=== PATIENT | female | born 1960 | race Caucasian/White ===

== ENCOUNTER → 2016-11-30 | Outpatient (CLI) | payer BC ==
[~2016-11-30] MED LIST: HYDR1TAB2 PO; LORA1TAB13 PO; PRLSR20 PO
[2016-11-30 13:25] LABS: THYROID STIMULATING HORMONE 1.33 uIu/ml (0.300-4.500)
== END | disposition home or self-care (01) ==
LOC: C.LABMFLN 08:21
PROVIDERS: ATTEND Family Medicine
DX: E03.9 Hypothyroidism, unspecified (principal)

== ENCOUNTER → 2016-12-21 | Outpatient (CLI) | payer BC ==
[2016-12-21 13:36] LABS: BASO % 0.5 %; BASO ABS # 0.03 K/uL (0-0.2); COMPLETE YES; EOS % 4.5 %; IG% 0.2 %; LYMPH % 35.4 %; LYMPH ABS # 1.98 K/uL (1.2-3.4); MEAN CELL VOLUME 91.1 fL (80-100); MEAN CORPUSCULAR HEMOGLOBIN 30.5 pg (25-34); MEAN CORPUSCULAR HGB CONC 33.5 g/dl (32-36); MEAN PLATELET VOLUME 10.4 fL (7.4-10.4); MONO % 6.6 %; NEUT % 52.8 %; PLATELET COUNT 232 K/uL (130-400); RED BLOOD COUNT 4.72 M/uL (4.2-5.4)
[2016-12-21 13:41] LABS: ALB/GLOB RATIO 0.9 (0.9-2); ALKALINE PHOSPHATASE 129 U/L (45-117); ALT/SGPT 75 U/L (12-78); AST/SGOT 34 U/L (15-37); BLOOD UREA NITROGEN 19 mg/dl (7-18); BUN/CREATININE RATIO 19.2 (10-20); CALCIUM 8.4 mg/dl (8.5-10.1); CARBON DIOXIDE 25 mmol/L (21-32); CHLORIDE 108 mmol/L (98-107); GLUCOSE 118 mg/dl (70-99); HDL CHOLESTEROL 90 mg/dl; POTASSIUM 4.1 mmol/L (3.5-5.1); SODIUM 143 mmol/L (136-145)
[2016-12-21 13:42] LABS: CHOLESTEROL 233 mg/dl (0-200); CHOLESTEROL/HDL RATIO 2.6; LDL CHOLESTEROL CALCULATED 126 mg/dl; TRIGLYCERIDES 85 mg/dl (0-150); VERY LOW DENSITY LIPOPROT CALC 17 mg/dl
[2016-12-21 14:05] LABS: ESTIMATED AVERAGE GLUCOSE 137 mg/dl; HA1C FLAG Normal (Normal)
[2016-12-21 14:13] LABS: RATIO 23.1 mcg/mg (0-30.0)
== END | disposition home or self-care (01) ==
LOC: C.LABMFLN 11:07
PROVIDERS: ATTEND Family Medicine
DX: I10 Essential (primary) hypertension (principal); E78.5 Hyperlipidemia, unspecified; E11.9 Type 2 diabetes mellitus without complications

== ENCOUNTER → 2017-09-29 | Outpatient (CLI) | payer BC ==
--- NOTE | 2017-09-29 16:01 | MAMMOGRAPHY REPORT ---
BILATERAL DIGITAL SCREENING MAMMOGRAM TOMOSYNTHESIS WITH CAD: 09/29/2017 CLINICAL HISTORY: Routine screening. Patient has no complaints. TECHNIQUE: Breast tomosynthesis in addition to standard 2D mammography was performed. Current study was also evaluated with a Computer Aided Detection (CAD) system. COMPARISON: Comparison is made to exams dated: 09/23/2016 mammogram, 09/04/2015 mammogram - [facility], 06/21/2013 mammogram, 04/07/2012 mammogram, 03/31/2011 mammogram, and 02/27/2010 mamm ogram. BREAST COMPOSITION: There are scattered areas of fibroglandular density in both breasts. FINDINGS: No suspicious masses, calcifications, or areas of architectural distortion are noted in ei ther breast. There has been no significant interval change compared to prior exams. There are stable intramammary lymph node in the right upper outer quadrant. IMPRESSION: ACR BI-RADS CATEGORY 2: BENIGN There is no mammographic evidence of malignancy. A 1 year screening mammogram is recommended. The pa tient will receive written notification of the results. Approximately 10% of breast cancers are not detected with mammography. A negative mammographic report should not delay biopsy if a clinically suggestive mass is present. Marian Pichardo M.D. /:09/29/2017 08:35:21 Shop Firer/Fireman: Susan RAGLAND)(M), [facility] letter sent: Normal 1/2 BI-RADS Code: ACR BI-RADS Category 2: Benign
== END | disposition home or self-care (01) ==
LOC: C.MAMM 07:57
PROVIDERS: ATTEND Family Medicine
DX: Z12.31 Encounter for screening mammogram for malignant neoplasm of breast (principal)

== ENCOUNTER 2018-10-12 05:35 | Observation (INO) ==
[2018-09-19 11:40] LABS: Basophils # (auto) 0.04 K/uL (0-0.2); Basophils % (auto) 0.6 %; Eosinophils # (auto) 0.09 K/uL (0-0.5); Eosinophils % (auto) 1.4 %; Hematocrit (blood only) 40.8 % (37-47); Hemoglobin 13.3 g/dL (12.0-16.0); Immature Granulocytes # (auto) 0.01 K/uL (0.00-0.02); Immature Granulocytes % (auto) 0.2 %; Lymphocytes % (auto) 32.2 %; Mean Corpuscular Hgb Conc 32.6 g/dL (32-36); Mean Corpuscular Volume 94.4 fL (80-100); Mean Platelet Volume 10.4 fL (7.4-10.4); Monocytes # (auto) 0.39 K/uL (0.11-0.59); Neutrophils # (auto) 3.89 K/uL (1.4-6.5); Neutrophils % (auto) 59.6 %; Platelet Count 269 K/uL (130-400); RDW Coefficient of Variation 13.4 % (11.5-14.5); RDW Standard Deviation 46.3 fL (36.4-46.3); Red Blood Count 4.32 M/uL (4.2-5.4); White Blood Count 6.52 K/uL (4.8-10.8)
[2018-09-19 11:47] LABS: BUN Creatinine Ratio 25.6 (10-20); Calcium 8.8 mg/dl (8.5-10.1); Creatinine Clr Calc Pharmacy 79.8 ml/min; Est GFR (African American) 98.8; Est GFR (Non-African American) 85.3; Potassium 4.4 mmol/L (3.5-5.1)
[2018-09-19 11:48] LABS: Partial Thromboplastin Time 26.8 Seconds (21.0-31.0); Prothrombin Time 10.3 Seconds (9.0-12.0)
[2018-09-19 11:50] LABS: Appearance Urine Clear (Clear); Bilirubin Urine Negative (Negative); Color Urine Yellow; Glucose Urine UA Negative (Negative); Ketones Urine Negative (Negative); Leukocyte Esterase Urine Negative (Negative); Nitrite Urine Negative (Negative); Protein Urine Negative (Negative); Specific Gravity Urine 1.016 (1.000-1.030); Urobilinogen Urine Negative (Negative); pH Urine 5.5 (4.5-7.5)
== END 2018-10-13 12:17 | disposition home or self-care (01) ==
LOC: 3E 05:35 → ASU 05:35

== ENCOUNTER 2024-01-03 12:28 | Observation (INO) ==
--- NOTE | 2024-01-03 13:04 | Emergency Department Note ---
Impression & Plan Acute appendicitis ADMIT ED Provider Note HPI: History obtained from patient. The patient is a 63-year-old female who presents emergency department with a chief complaint of abdominal pain. Patient states she has had abdominal pain for the past 3 weeks. Patient states that is mostly in her lower abdomen, it seems to be relieved with bowel movements at times. Patient states that yesterday she developed some pain also in the right lower quadrant area of her abdomen and also the right flank. Patient states she has had nausea and had an episode of vomiting last night. On arrival here to the ED the patient is hemodynamically stable, she denies any chest pain or shortness of breath, she is in no acute distress on my initial assessment. ROS: - Per HPI Differential Diagnosis: Viral gastroenteritis, kidney stone, pyelonephritis, acute appendicitis, small bowel obstruction, amongst other potential pathologies. *Outpatient medications and allergy history reviewed. PE: General: Alert HEENT: Normocephalic, trachea midline Eyes: Extraocular eye movement is intact, no scleral erythema Pulmonary: Clear to auscultation bilaterally, no wheezing Cardio: Regular rate and rhythm GI: Abdomen is soft to palpation, moderate tenderness to the right side of the abdomen with palpation without guarding or rigidity : No suprapubic tenderness MSK: No evidence of trauma or malformation of the extremities, no edema Skin: No evidence of rash Neuro: Alert, no focal deficits Psychiatric: Cooperative INDEPENDENT INTERPRETATIONS: algorithm developer: (As interpreted by myself): - An order was placed for continuous cardiac monitoring - Patient was noted to be in sinus rhythm with a rate of 80 EKG: (As interpreted by myself): Rate: 91 Rhythm: Normal sinus rhythm Intervals: Within normal limits ST changes: No ST elevation Time: 1309 Interventions provided in ED: -IV fluid bolus, IV Zofran Medical Decision Making: IV was established and lab work obtained, patient was placed on chief data officer. Lab work shows a leukocytosis of 16.12, hemoglobin is normal, platelet count is normal, CMP does not show any critical findings. Troponin is negative x 1. EKG per my interpretation shows normal sinus rhythm without any acute ischemic changes. Lab work shows mild ketonuria. CT imaging of the abdomen pelvis shows evidence of acute appendicitis without perforation or abscess per the interpreting radiologist. I discussed the patient's presentation with the on-call midlevel provider for the general surgery service, Amy Moreno PA-C, and the patient was evaluated by the general surgery service. She was determined appropriate for operative intervention and she was transferred to the OR in stable condition to the service of Dr. Latesha Babcock for definitive care. Patient and her were in agreement to this plan, patient was transferred to the operating room in stable condition. Consultants/Discussions held with other healthcare providers: -General surgery, Dr. Latesha Babcock/Amy Moreno PA-C Disposition discussion held by myself with: -Patient and at the bedside Diagnosis: 1. Acute appendicitis 2. Abdominal pain, acute 3. Nausea and vomiting, acute 4. Leukocytosis acute 5. 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 Pap smear for cervical cancer screening Hypothyroidism Hyperlipidemia Encounter for screening mammogram for breast cancer Recurrent cold sores Overactive bladder Need for immunization against influenza Need for hepatitis C screening test Insomnia Idiopathic peripheral neuropathy Esophageal reflux Diabetes mellitus Cervicalgia Benign essential hypertension Hyperlipidemia Cervical radiculopathy at C7 Numbness/tingling down LUE Hypothyroidism Dry eye syndrome Peripheral neuropathy Surgical History History of bunionectomy RT/LEFT 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 Fusion of spine CERVICAL FUSION-- [facility] 2012, NO ISSUES PER RECORD 2018 another fusion History of esophagogastroduodenoscopy (EGD) History of colonoscopy History of cholecystectomy History of tooth extraction History of tonsillectomy Family History Grandmother Family history of diabetes mellitus Mother Family history of diabetes mellitus Sister Crohn's disease Father Hypertension Heart disease Social History Smoking Status: Never smoker Second Hand Exposure: No; Do You Dip or Chew Tobacco: No; Hx Alcohol Use: Yes Alcohol type: beer Hx Substance Use: No Preferred Language: Syrian Communication Ability: Effective [place] Required: No Beliefs That Will Affect Care: None marital status: Current Living Situation: Spouse Feels Safe at Home: Yes Assistive Devices: Glasses Allergies Allergies Allergy/AdvReac Type Severity Reaction Status Date / Time cefaclor Allergy Severe erythemamul Verified 01/03/24 15:18 tiforme nafcillin Allergy Mild Rash/hives Verified 01/03/24 15:18 oxycodone Allergy Mild hives Verified 01/03/24 15:18 polymyxin B [From Polytrim] Allergy Mild swelling Verified 01/03/24 15:18 around eye trimethoprim [From Polytrim] Allergy Mild swelling Verified 01/03/24 15:18 around eye Home Meds Home Medications Medication Instructions Recorded Confirmed cyclosporine 0.05 % eye drops in a 1 drp OPB Q12H 09/15/18 01/03/24 dropperette (Restasis) levothyroxine 50 mcg capsule 50 mcg PO QAM 09/15/18 01/03/24 valacyclovir 500 mg tablet 500 mg PO QPM 09/15/18 01/03/24 (Valtrex) multivitamin (Multiple Vitamins 1 tab PO DAILY 04/18/21 01/03/24 tablet) metformin 500 mg tablet,extended 500 mg PO QAM 12/31/21 01/03/24 release 24 hr semaglutide 2 mg/dose (8 mg/3 mL) 2 mg subcut .Q7DAYS 01/03/24 01/03/24 subcutaneous pen injector (Ozempic) Previous Rx's Medication Instructions Recorded duloxetine 60 mg capsule,delayed 60 mg PO DAILY 90 days #90 caps 02/09/22 release Results & Data (ED) Vital Signs Vital Signs - 24 hr 01/03/24 12:35 01/03/24 13:05 01/03/24 13:10 Temperature 36.4 C L Temperature Source Temporal Artery Scan Pulse Rate 102 H 91 H 91 H Pulse Rate [Apical] Pulse Rate from SpO2 Sensor Pulse Rhythm [Apical] Respiratory Rate 18 14 Respiratory Effort / Characteristics Non-Labored Spontaneous Respiratory Depth Normal Respiratory Pattern Regular Blood Pressure 143/83 H Blood Pressure Mean 103 Pulse Oximetry 96 Oxygen Delivery Method Room Air Sepsis Recent Fever Within 48 Hours No Sepsis New/Unexplained Change in Mental Status N/A Sepsis Action Taken by Nursing No Action Required 01/03/24 13:10 01/03/24 13:11 01/03/24 13:12 Temperature Temperature Source Pulse Rate 89 Pulse Rate [Apical] 89 Pulse Rate from SpO2 Sensor 91 H Pulse Rhythm [Apical] Regular Respiratory Rate 23 16 Respiratory Effort / Characteristics Respiratory Depth Respiratory Pattern Blood Pressure Blood Pressure Mean Pulse Oximetry 89 L 92 92 Oxygen Delivery Method Room Air Room Air Sepsis Recent Fever Within 48 Hours Sepsis New/Unexplained Change in Mental Status Sepsis Action Taken by Nursing 01/03/24 13:20 01/03/24 13:30 01/03/24 13:40 Temperature Temperature Source Pulse Rate 90 90 91 H Pulse Rate [Apical] Pulse Rate from SpO2 Sensor 89 92 H 92 H Pulse Rhythm [Apical] Respiratory Rate 17 18 20 Respiratory Effort / Characteristics Respiratory Depth Respiratory Pattern Blood Pressure Blood Pressure Mean Pulse Oximetry 94 93 97 Oxygen Delivery Method Sepsis Recent Fever Within 48 Hours Sepsis New/Unexplained Change in Mental Status Sepsis Action Taken by Nursing 01/03/24 13:50 01/03/24 14:15 01/03/24 14:17 Temperature Temperature Source Pulse Rate 87 Pulse Rate [Apical] Pulse Rate from SpO2 Sensor 88 101 H Pulse Rhythm [Apical] Respiratory Rate 25 H Respiratory Effort / Characteristics Respiratory Depth Respiratory Pattern Blood Pressure 137/75 Blood Pressure Mean 97 Pulse Oximetry 93 96 Oxygen Delivery Method Sepsis Recent Fever Within 48 Hours Sepsis New/Unexplained Change in Mental Status Sepsis Action Taken by Nursing 01/03/24 14:17 01/03/24 14:20 01/03/24 14:40 Temperature Temperature Source Pulse Rate 101 H 102 H 101 H Pulse Rate [Apical] Pulse Rate from SpO2 Sensor 102 H 101 H 101 H Pulse Rhythm [Apical] Respiratory Rate 9 L 20 16 Respiratory Effort / Characteristics Respiratory Depth Respiratory Pattern Blood Pressure Blood Pressure Mean Pulse Oximetry 94 94 96 Oxygen Delivery Method Sepsis Recent Fever Within 48 Hours Sepsis New/Unexplained Change in Mental Status Sepsis Action Taken by Nursing 01/03/24 15:13 Temperature Temperature Source Pulse Rate 75 Pulse Rate [Apical] Pulse Rate from SpO2 Sensor Pulse Rhythm [Apical] Respiratory Rate 16 Respiratory Effort / Characteristics Respiratory Depth Respiratory Pattern Blood Pressure Blood Pressure Mean Pulse Oximetry 96 Oxygen Delivery Method Room Air Sepsis Recent Fever Within 48 Hours Sepsis New/Unexplained Change in Mental Status Sepsis Action Taken by Nursing Laboratory Data 01/03/24 12:52 01/03/24 12:52 Lab Results 01/03/24 01/03/24 01/03/24 Range/Units 12:46 12:52 14:17 WBC 16.12 H (4.8-10.8) K/ul RBC 4.99 (4.20-5.40) M/uL Hgb 14.6 (12.0-16.0) g/dl Hct 45.2 (37.0-47.0) % MCV 90.6 (80.0-100.0) fL MCH 29.3 (25.0-34.0) pg MCHC 32.3 (32.0-36.0) g/dL RDW Std Deviation 44.8 (36.4-46.3) fL RDW Coeff of [place] 13.6 (11.5-14.5) % Plt Count 284 (130-400) K/uL MPV 9.8 (9.4-12.4) fL Immature Gran % (Auto) 0.5 % Neut % (Auto) 85.2 % Lymph % (Auto) 7.9 % [place] % (Auto) 5.5 % Eos % (Auto) 0.5 % Baso % (Auto) 0.4 % Neut # (Auto) 13.73 H (1.40-6.50) K/uL Lymph # (Auto) 1.27 (1.20-3.40) K/uL [place] # (Auto) 0.89 H (0.11-0.59) K/uL Eos # (Auto) 0.08 (0.00-0.50) K/uL Baso # (Auto) 0.07 (0.00-0.20) K/uL Immature Gran # (Auto) 0.08 (0.01-0.20) K/uL PT Cancelled 11.0 INR Cancelled 1.0 Sodium 137 (136-145) mmol/L Potassium 4.2 (3.5-5.1) mmol/L Chloride 103 (98-107) mmol/L Carbon Dioxide 25 (21-32) mmol/L Anion Gap 9 (3-11) BUN 18 (6-23) mg/dl Creatinine 0.72 (0.6-1.2) mg/dl Est Cr Clr Drug Dosing 77.5 ml/min Est GFR ( Amer) 101.9 ml/min Est GFR (Non-Af Amer) 87.9 ml/min BUN/Creatinine Ratio 25.0 H (10-20) Glucose 135 H (70-99(Fasting)) mg/dl Calcium 9.1 (8.6-10.3) mg/dl Total Bilirubin 0.7 (0.2-1.0) mg/dl AST 29 (13-39) U/L ALT 33 (7-52) U/L Alkaline Phosphatase 175 H (34-104) U/L Troponin I High Sens 6.0 (0-14) pg/ml Total Protein 7.6 (6.0-8.3) gm/dl Albumin 4.3 (3.4-5.0) gm/dl Globulin 3.3 (2.5-4.0) gm/dl Albumin/Globulin Ratio 1.3 (0.9-2) Lipase 20 (11-82) U/L Urine Color Dark Yellow Urine Appearance Clear (Clear) Urine pH 8.0 H (4.5-7.5) Ur Specific [employer] 1.027 (1.000-1.030) Urine Protein Trace H (Negative) Urine Glucose (UA) Negative (Negative) Urine Ketones 2+ H (Negative) Urine Blood Negative (Negative) Urine Nitrite Negative (Negative) Urine Bilirubin Negative (Negative) Urine Urobilinogen Negative (Negative) Ur Leukocyte Esterase Negative (Negative) Urine WBC (Auto) 1-5 (0-5) /hpf Urine RBC (Auto) 0-4 (0-4) /hpf U Hyaline Cast (Auto) 1-5 (0-5) /lpf U Epithel Cells (Auto) 20-30 H (0-5) /lpf Urine Bacteria (Auto) Negative (Negative) Administered Medications Discontinued Medications Sodium Chloride (Nss) 500 mls @ 999 mls/hr IV .Q31M ONE Stop: 01/03/24 14:52 Last Admin: 01/03/24 14:27 Dose: 999 mls/hr Documented By: ELVER Ioversol (Optiray 320 100ml) 91 ml IV ONCE ONE Stop: 01/03/24 13:59 Last Admin: 01/03/24 13:59 Dose: 91 ml Documented By: MELCHOR Ondansetron HCl (Ondansetron Inj 2 Mg/Ml 2 Ml Vial) Confirm Administered Dose 4 mg .ROUTE .STK-MED ONE Stop: 01/03/24 14:13 Last Admin: 01/03/24 14:15 Dose: 4 mg Documented By: ENMA Ondansetron HCl (Ondansetron Inj 2 Mg/Ml 2 Ml Vial) 4 mg IV NOW STA Stop: 01/03/24 14:22 Last Admin: 01/03/24 14:27 Dose: Not Given Documented By: KV Imaging Data Radiologist's Impression: Abdomen/Pelvis CT 01/03/24 13:01 CT abd pelvis IV con only CLINICAL HISTORY: RLQ and R flank pain TECHNIQUE: Helical axial images of the abdomen and pelvis were obtained and displayed. Automated dose lowering techniques and/or adjustment according to patient size were utilized for this exam. This exam was performed with intravenous contrast. CT DOSE: 1153.58 mGy.cm COMPARISON: None available at the time of this dictation. FINDINGS: Lower chest: Bibasilar atelectasis versus scarring is seen. Liver: Unremarkable. No focal lesions are seen. Gallbladder and biliary tree: Patient is status post cholecystectomy. Physiologic prominence of the biliary ducts is noted. Pancreas: Unremarkable, no focal lesions. Spleen: Unremarkable. Adrenals: Unremarkable. Kidneys and ureters: Unremarkable. Bladder: Limited evaluation due to underdistention. Reproductive organs: Unremarkable. Bowel: The appendix measures 6 with an appendicolith seen. Wall thickening and surrounding fat stranding is noted. There is thickening of the duodenal wall. Lymph nodes Retroperitoneal: Unremarkable. Pelvic: Unremarkable. Mesenteric: Unremarkable. Peritoneum: Normal. Vessels: Atherosclerotic calcifications are seen. Abdominal wall: Unremarkable. Bones: Degenerative changes in the visualized spine. IMPRESSION: Findings are compatible with acute appendicitis with an appendicolith. No evidence of rupture or abscess formation. ACT 112: Negative or not required by law. Electronically signed by: Vladimir Grover M.D. 01/03/2024 2:16 PM Discharge Plan Visit Data Chief Complaint: Abdominal Pain Stated Complaint: ABD PAIN, VOMITING ED Provider: Vishal Peraza Discharge Problem: Acute appendicitis Patient Disposition: Admitted As Inpatient Discharge Instructions Interventions: ED Discharge Assessment Last Done: 01/03/24 15:13 Discharge Problem: Acute appendicitis Qualifiers: Acute appendicitis type: other Qualified Code(s): K35.890 - Other acute appendicitis without perforation or gangrene
[2024-01-03 13:22] LABS: Basophils # (auto) 0.07 K/uL (0.00-0.20); Basophils % (auto) 0.4 %; Eosinophils # (auto) 0.08 K/uL (0.00-0.50); Eosinophils % (auto) 0.5 %; Hematocrit (blood only) 45.2 % (37.0-47.0); Hemoglobin 14.6 g/dl (12.0-16.0); Immature Granulocytes # (auto) 0.08 K/uL (0.01-0.20); Immature Granulocytes % (auto) 0.5 %; Lymphocytes # (auto) 1.27 K/uL (1.20-3.40); Lymphocytes % (auto) 7.9 %; Mean Corpuscular Hemoglobin 29.3 pg (25.0-34.0); Mean Corpuscular Hgb Conc 32.3 g/dL (32.0-36.0); Mean Corpuscular Volume 90.6 fL (80.0-100.0); Mean Platelet Volume 9.8 fL (9.4-12.4); Monocytes # (auto) 0.89 K/uL (0.11-0.59); Monocytes % (auto) 5.5 %; Neutrophils # (auto) 13.73 K/uL (1.40-6.50); Neutrophils % (auto) 85.2 %; Platelet Count 284 K/uL (130-400); RDW Coefficient of Variation 13.6 % (11.5-14.5); RDW Standard Deviation 44.8 fL (36.4-46.3); Red Blood Count 4.99 M/uL (4.20-5.40); White Blood Count 16.12 K/ul (4.8-10.8)
[2024-01-03 13:27] LABS: Appearance Urine Clear (Clear); Bacteria Urine Automated Negative (Negative); Bilirubin Urine Negative (Negative); Blood Urine Negative (Negative); Color Urine Dark Yellow; Epithelial Cell Urine Auto 20-30 /lpf (0-5); Glucose Urine UA Negative (Negative); Ketones Urine 2+ (Negative); Leukocyte Esterase Urine Negative (Negative); Nitrite Urine Negative (Negative); RBC Urine Automated 0-4 /hpf (0-4); Specific Gravity Urine 1.027 (1.000-1.030); Urobilinogen Urine Negative (Negative)
[2024-01-03 13:33] LABS: Protein Urine Trace (Negative)
[2024-01-03 13:44] LABS: Albumin Level 4.3 gm/dl (3.4-5.0); Bilirubin,Total 0.7 mg/dl (0.2-1.0); Calcium 9.1 mg/dl (8.6-10.3); Potassium 4.2 mmol/L (3.5-5.1)
[2024-01-03 13:50] LABS: Albumin Globulin Ratio 1.3 (0.9-2); Creatinine Clr Calc Pharmacy 77.5 ml/min; Est GFR (African American) 101.9 ml/min; Est GFR (Non-African American) 87.9 ml/min; Globulin 3.3 gm/dl (2.5-4.0); Total Protein 7.6 gm/dl (6.0-8.3)
[2024-01-03] MEDS: OPTIRAY 320 100ml IV ONE (13:59)
[2024-01-03] MEDS: ONDANSETRON INJ 2 MG/ML 2 ML VIAL ONE (14:15)
--- NOTE | 2024-01-03 14:18 | CT Scan Report ---
CT abd pelvis IV con only CLINICAL HISTORY: RLQ and R flank pain TECHNIQUE: Helical axial images of the abdomen and pelvis were obtained and displayed. Automated dose lowering techniques and/or adjustment according to patient size were utilized for this exam. This e xam was performed with intravenous contrast. CT DOSE: 1153.58 mGy.cm COMPARISON: None available at the time of this dictation. FINDINGS: Lower chest: Bibasilar atelectasis versus scarring is seen. Liver: Unremarkable. No focal lesions are seen. Gallbladder and biliary tree: Patient is status post cholecystectomy. Physiologic prominence of the b iliary ducts is noted. Pancreas: Unremarkable, no focal lesions. Spleen: Unremarkable. Adrenals: Unremarkable. Kidneys and ureters: Unremarkable. Bladder: Limited evaluation due to underdistention. Reproductive organs: Unremarkable. Bowel: The appendix measures 6 with an appendicolith seen. Wall thickening and surrounding fat strand ing is noted. There is thickening of the duodenal wall. Lymph nodes Retroperitoneal: Unremarkable. Pelvic: Unremarkable. Mesenteric: Unremarkable. Peritoneum: Normal. Vessels: Atherosclerotic calcifications are seen. Abdominal wall: Unremarkable. Bones: Degenerative changes in the visualized spine. IMPRESSION: Findings are compatible with acute appendicitis with an appendicolith. No evidence of rupture or absc ess formation. ACT 112: Negative or not required by law. Electronically signed by: Vladimir Grover M.D. 01/03/2024 2:16 PM
[2024-01-03] MEDS: SODIUM CHLORIDE 0.9% 500 ML IV ONE (14:27)
[2024-01-03] MEDS: ONDANSETRON INJ 2 MG/ML 2 ML VIAL IV STA (14:27)
[2024-01-03] MEDS ORDERED: fentaNYL citrate PF 100 MCG/2 ML VIAL IV PRN (15:29)
[2024-01-03] MEDS ORDERED: ONDANSETRON INJ 2 MG/ML 2 ML VIAL IV PRN ×2 (15:29→18:29)
[2024-01-03] MEDS ORDERED: ePHEDrine sulfate 50 MG/ML AMP IV PRN (15:29)
[2024-01-03] MEDS ORDERED: ATROPINE SULFATE 0.1 MG/ML 10ML SYR IV PRN (15:29)
[2024-01-03] MEDS ORDERED: MEPERIDINE HCL 25 MG/ML CARP/VIAL IV PRN (15:29)
[2024-01-03] MEDS ORDERED: MoRPHine SULFATE 10 MG/ML CARP/VIAL IV PRN (15:29)
--- NOTE | 2024-01-03 15:29 | Anesthesiology Consultation ---
Date of Service January 03, 2024 Assessment & Plan Chart Review Chart Review: Acceptable Risk for Surgery Consults Requested none ASA [id number] Proposed Anesthesia Anesthesia Type: General (rsi) Risk / Benefits Reviewed With: PT / POA / Parent / Guardian, Accepts Plan and Informed Consent Obtained Additional Comments: increased risk aspiration secondary to semaglutide History Surgery Operation Date: 01/03/24 10:00 Proposed Procedures p Laparoscopic Appendectomy - Izaiah Goodrich, Height/Weight Height: 5 ft 3 in Weight: 78.9 kg Allergies Allergy/AdvReac Type Severity Reaction Status Date / Time cefaclor Allergy Severe erythemamul Verified 01/03/24 15:18 tiforme nafcillin Allergy Mild Rash/hives Verified 01/03/24 15:18 oxycodone Allergy Mild hives Verified 01/03/24 15:18 polymyxin B [From Polytrim] Allergy Mild swelling Verified 01/03/24 15:18 around eye trimethoprim [From Polytrim] Allergy Mild swelling Verified 01/03/24 15:18 around eye Medications Home Medications Medication Instructions Recorded Confirmed Last Taken cyclosporine 0.05 % eye drops in a 1 drp OPB Q12H 09/15/18 01/03/24 12/31/21 08:00 dropperette (Restasis) levothyroxine 50 mcg capsule 50 mcg PO QAM 09/15/18 01/03/24 12/31/21 valacyclovir 500 mg tablet 500 mg PO QPM 09/15/18 01/03/24 12/30/21 (Valtrex) multivitamin (Multiple Vitamins 1 tab PO DAILY 04/18/21 01/03/24 12/31/21 tablet) metformin 500 mg tablet,extended 500 mg PO QAM 12/31/21 01/03/24 12/31/21 release 24 hr duloxetine 60 mg capsule,delayed 60 mg PO DAILY 90 days #90 caps 02/09/22 01/03/24 Unknown release semaglutide 2 mg/dose (8 mg/3 mL) 2 mg subcut .Q7DAYS 01/03/24 01/03/24 Unknown subcutaneous pen injector (Ozempic) Additional Notes: last ozempic 12/30/23 NPO Date Last Intake of Fluids: 01/03/24 Time Last Intake of Fluids: 08:00 Date Last Intake of Solids: 01/02/24 Time Last Intake of Solids: 18:00 Past Medical History Medical History 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 Pap smear for cervical cancer screening Hypothyroidism Hyperlipidemia Encounter for screening mammogram for breast cancer Recurrent cold sores Overactive bladder Need for immunization against influenza Need for hepatitis C screening test Insomnia Idiopathic peripheral neuropathy Esophageal reflux Diabetes mellitus Cervicalgia Benign essential hypertension Hyperlipidemia Cervical radiculopathy at C7 Numbness/tingling down LUE Hypothyroidism Dry eye syndrome Peripheral neuropathy Exercise / Class Metabolic Activity II 4-5 Yardwork/Stairs/Walk up hill Past Family History Family History Grandmother Family history of diabetes mellitus Mother Family history of diabetes mellitus Sister Crohn's disease Father Hypertension Heart disease Past Surgical History Surgical History History of bunionectomy RT/LEFT 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 Fusion of spine CERVICAL FUSION-- [facility] 2012, NO ISSUES PER RECORD 2018 another fusion History of esophagogastroduodenoscopy (EGD) History of colonoscopy History of cholecystectomy History of tooth extraction History of tonsillectomy Past Anesthesia History No Hx of Anesthesia Complications and No Family Hx of Anesthesia Complications History of PONV No Hx of PONV and No Hx of Motion Sickness Social History Smoking Status: Never smoker Do You Dip or Chew Tobacco: No Hx Alcohol Use: Yes Alcohol type: beer alcohol intake frequency: a few times a week Hx Substance Use: No substance use type: does not use Physical Exam Vital Signs Last Vital Signs Temp 36.4 C L 01/03/24 12:35 Pulse 75 01/03/24 15:13 Resp 16 01/03/24 15:13 BP 137/75 01/03/24 14:17 Pulse Ox 96 01/03/24 15:13 O2 Del Method Room Air 01/03/24 15:13 ENMT Mouth: + small oral opening; no TMJ abnormality Thyromental Distance: > or= 3.5 Finger Breadths Mallampati Class: III Neck normal visual inspection, trachea midline and + limited neck extension (slight) Respiratory normal respiratory effort Auscultation: lungs clear to auscultation bilaterally Cardiovascular Rate/Rhythm: regular rate and regular rhythm Heart Sounds: no murmur Musculoskeletal Spine: normal cervical ROM Extremities: full ROM of extremities Neurologic moves all extremities Psychiatric Orientation: alert and oriented x 3 Testing Laboratory Results 01/03/24 12:52 01/03/24 12:52 PT 11.0 Seconds (9.0-12.0) 01/03/24 14:17 INR 1.0 (0.9-1.1) 01/03/24 14:17 Urine Color Dark Yellow 01/03/24 12:46 Urine Appearance Clear (Clear) 01/03/24 12:46 Urine pH 8.0 (4.5-7.5) H 01/03/24 12:46 Ur Specific [place] 1.027 (1.000-1.030) 01/03/24 12:46 Urine Protein Trace (Negative) H 01/03/24 12:46 Urine Glucose (UA) Negative (Negative) 01/03/24 12:46 Urine Ketones 2+ (Negative) H 01/03/24 12:46 Urine Nitrite Negative (Negative) 01/03/24 12:46 Ur Leukocyte Esterase Negative (Negative) 01/03/24 12:46 Urine WBC (Auto) 1-5 /hpf (0-5) 01/03/24 12:46 Urine RBC (Auto) 0-4 /hpf (0-4) 01/03/24 12:46 U Hyaline Cast (Auto) 1-5 /lpf (0-5) 01/03/24 12:46 U Epithel Cells (Auto) 20-30 /lpf (0-5) H 01/03/24 12:46 Urine Bacteria (Auto) Negative (Negative) 01/03/24 12:46 Electrocardiogram Date: 01/03/24 Findings: + NSR @ (90)
--- NOTE | 2024-01-03 16:16 | History & Physical Report ---
Date of Service January 03, 2024 Assessment & Plan (1) Acute appendicitis: Plan Admit to surgery IVF, IV antibiotics OR for laparoscopic appendectomy. Consent is obtained. The details of the procedure have been explained to her including the risks and benefits. She expressed understanding and all of her questions were answered. History of Present Illness Chief Complaint: Abdominal pain Primary Care Provider: Mel Sutton 63 y/o F c/o RLQ abdominal pain more severe today. No N/V, diarrhea. No chest pains or SOB. Afebrile. Allergies Allergy/AdvReac Type Severity Reaction Status Date / Time cefaclor Allergy Severe erythemamul Verified 01/03/24 15:18 tiforme nafcillin Allergy Mild Rash/hives Verified 01/03/24 15:18 oxycodone Allergy Mild hives Verified 01/03/24 15:18 polymyxin B [From Polytrim] Allergy Mild swelling Verified 01/03/24 15:18 around eye trimethoprim [From Polytrim] Allergy Mild swelling Verified 01/03/24 15:18 around eye Home Medications Medication Instructions Recorded Confirmed Type cyclosporine 0.05 % eye drops in a 1 drp OPB Q12H 09/15/18 01/03/24 History dropperette (Restasis) levothyroxine 50 mcg capsule 50 mcg PO QAM 09/15/18 01/03/24 History valacyclovir 500 mg tablet 500 mg PO QPM 09/15/18 01/03/24 History (Valtrex) multivitamin (Multiple Vitamins 1 tab PO DAILY 04/18/21 01/03/24 History tablet) metformin 500 mg tablet,extended 500 mg PO QAM 12/31/21 01/03/24 History release 24 hr duloxetine 60 mg capsule,delayed 60 mg PO DAILY 90 days #90 caps 02/09/22 01/03/24 Rx release semaglutide 2 mg/dose (8 mg/3 mL) 2 mg subcut .Q7DAYS 01/03/24 01/03/24 History subcutaneous pen injector (Ozempic) Past Med/Surg History Medical History 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 Pap smear for cervical cancer screening Hypothyroidism Hyperlipidemia Encounter for screening mammogram for breast cancer Recurrent cold sores Overactive bladder Need for immunization against influenza Need for hepatitis C screening test Insomnia Idiopathic peripheral neuropathy Esophageal reflux Diabetes mellitus Cervicalgia Benign essential hypertension Hyperlipidemia Cervical radiculopathy at C7 Numbness/tingling down LUE Hypothyroidism Dry eye syndrome Peripheral neuropathy Surgical History History of bunionectomy RT/LEFT 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 Fusion of spine CERVICAL FUSION-- [facility] 2012, NO ISSUES PER RECORD 2018 another fusion History of esophagogastroduodenoscopy (EGD) History of colonoscopy History of cholecystectomy History of tooth extraction History of tonsillectomy Family History Grandmother Family history of diabetes mellitus Mother Family history of diabetes mellitus Sister Crohn's disease Father Hypertension Heart disease Social History Smoking Status: Never smoker Second Hand Exposure: No; Do You Dip or Chew Tobacco: No; Hx Alcohol Use: Yes Alcohol type: beer Hx Substance Use: No Preferred Language: Bangladeshi Communication Ability: Effective [employer]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 Beliefs That Will Affect Care: None marital status: Current Living Situation: Spouse Feels Safe at Home: Yes Assistive Devices: Glasses Review of Systems Constitutional: no fever, no chills, no sweats and no body aches Respiratory: no cough, no chest congestion, no hemoptysis and no wheezing Cardiovascular: no chest pain, no dyspnea, no orthopnea and no palpitations Gastrointestinal: + abdominal pain; no belching, no early satiety and no vomiting Physical Exam Constitutional: average body habitus and healthy appearing; no acute distress and not diaphoretic Respiratory: normal respiratory effort; no respiratory distress, no labored breathing and does not use accessory muscles Cardiovascular: Rate/Rhythm: regular rate; not tachycardic Heart Sounds: no gallop and no cardiac rub Gastrointestinal (Abdomen): Inspection/Auscultation: abdomen normal to inspection Percussion/Palpation: + abdomen tender and abdomen soft; abdomen not rigid and no abdominal mass Results & Data Results & Data Vital Signs (Past 12 Hours) Vital Signs Temp Pulse Pulse Resp BP BP Pulse Ox 01/03/24 15:20 36.8 C 91 H 18 129/65 97 01/03/24 15:13 75 16 96 01/03/24 14:40 101 H 16 96 01/03/24 14:20 102 H 20 94 01/03/24 14:17 101 H 9 L 94 01/03/24 14:17 137/75 01/03/24 14:15 96 01/03/24 13:50 87 25 H 93 01/03/24 13:40 91 H 20 97 01/03/24 13:30 90 18 93 01/03/24 13:20 90 17 94 01/03/24 13:12 92 01/03/24 13:11 89 16 92 01/03/24 13:10 89 23 89 L 01/03/24 13:10 91 H 01/03/24 13:05 91 H 14 01/03/24 12:35 36.4 C L 102 H 18 143/83 H 96 O2 Del Method 01/03/24 15:20 Room Air 01/03/24 15:13 Room Air 01/03/24 14:40 01/03/24 14:20 01/03/24 14:17 01/03/24 14:17 01/03/24 14:15 01/03/24 13:50 01/03/24 13:40 01/03/24 13:30 01/03/24 13:20 01/03/24 13:12 Room Air 01/03/24 13:11 Room Air 01/03/24 13:10 01/03/24 13:10 01/03/24 13:05 01/03/24 12:35 Room Air PG Care Time/CCT Total # of Minutes Spent Total Time Spent with Patient: Total time spent is greater than 50% in coordination of care (as documented) at patient's floor/unit and/or counseling patient: [place] [address] INT INP/OBS CARE MIN Patient Type New History Problem Focused Exam Expanded Problem Focused Medical Decision Making Low Complexity Diagnoses Acute appendicitis K35.890 Acute appendicitis type: other (1) Acute appendicitis Acute appendicitis type: other Qualified Code(s): K35.890 - Other acute appendicitis without perforation or gangrene
[2024-01-03] MEDS: ceFAZolin 2000MG 2,000 MG/15 ML SYR IV ONE (16:37)
[2024-01-03] MEDS: cefOXitin 2,000 MG in DEXTROSE 5 % MINI-B 50 ML IV ONE (16:37)
--- NOTE | 2024-01-03 17:25 | Electrocardiogram Report ---
Test Reason : Blood Pressure : / mmHG Vent. Rate : 091 BPM Atrial Rate : 091 BPM P-R Int : 150 ms QRS Dur : 090 ms QT Int : 370 ms P-R-T Axes : 083 080 039 degrees QTc Int : 455 ms Normal sinus rhythm T wave abnormality, consider inferior ischemia Abnormal ECG When compared with ECG of 31-DEC-2021 15:57, Nonspecific T wave abnormality now evident in Anterior leads Confirmed by Derek Bower ([id number]) on 01/03/2024 5:24:48 PM Referred By: REFERRED SELF Confirmed By:L[place] Bower
[2024-01-03] MEDS: BUPIVACAINE/EPINEPHRINE 0.5% MPF 1:200,000 30 ML VIAL ONE (17:32)
--- NOTE | 2024-01-03 17:51 | Operative Report ---
PG Post Operative Report Pre & Post Diagnosis Operation Date: 01/03/24 10:00 Pre-Op Diagnosis: acute appendicitis Post-Op Diagnosis: acute appendicitis, perforated appendix I identified the patient and participated in the time-out.: Yes Procedure Operation Date: 01/03/24 10:00 Actual Procedures p Laparoscopic Appendectomy - Izaiah Goodrich DO Surgeon Izaiah Goodrich DO Courtesy Driver [place] Iyer Estimated Blood Loss 10 Findings Consistent with Post-Op Diagnosis Specimens Appendix Drains None Anesthesia Type General Indications Acute appendicitis Description of Procedure Patient was brought back to the operating room placed on the operating room table in supine position. She was connected to cardiac and oxygen monitoring, supplemental O2 was provided. The patient was administered general anesthesia and a secure airway was established. A Abarca catheter was inserted. The abdomen was prepped and draped in typical sterile fashion and a timeout was conducted. Local anesthetic was used to anesthetize the skin just inferior to the umbilicus and a stab incision was made with an 11 blade. A Veress needle was inserted into the intra-abdominal space and CO2 insufflation was initiated to local pressure 15 mmHg. A 5 mm laparoscope was inserted using direct visualization with a 5 mm Visiport. After injecting local anesthetic into the left lower quadrant and suprapubic area, incisions were made and a 12 mm trocar was inserted at the left lower quadrant in addition to a 5 mm trocar at the suprapubic area. A small amount of purulent fluid was identified in the pelvis. The appendix was identified at the right lower quadrant and extending retrocecal. The appendix was thickened, long and extremely ischemic appearing. It was firm, difficult to grasp. A window was made between the mesoappendix and the base of the appendix. The base of the appendix was transected using a 45 mm blue loaded endoscopic TAMARA stapler. The mesoappendix was thickened. This was taken with a harmonic. There was bleeding at appendiceal artery as well as the lateral edge of the staple line. 5 mm clips were used at the staple line. Additional cautery was used on the periappendiceal artery. There was still some bleeding. The area was suctioned and irrigated. The bleeding had ceased. Fluid was suctioned from the pelvis and from around the right lower quadrant. Initial fluid obtained from the pelvis was sent for culture. The base of the appendix and mesoappendix were examined thoroughly for several minutes to investigate for any further bleeding. The area had been copiously irrigated and suctioned until the fluid ran clear. There was no further bleeding at the site of resection. The appendix was placed in an Endo Catch bag and removed from the abdomen. This was sent in a label container to pathology for further analysis. The surgical site was again thoroughly examined. There was still no further bleeding from this area after watching again for several minutes. At this point since all access is fluent was suctioned away from the pelvis and right lower quadrant as well as the right upper quadrant. CO2 insufflation was discontinued, excess CO2 was evacuated from the abdomen. All trocars and instruments were removed. The left lower quadrant incision was closed at the level of the fascia with 0 Vicryl suture. The skin was closed at all incision sites with 4-0 Vicryl suture. The abdomen was wiped clean with a saline soaked lap pad and dried. Dermabond was applied to all 3 incisions. The Abarca catheter was removed. The patient tolerated the procedure well. She was awakened from anesthesia and the secured airway was removed. The patient was transferred to recovery in stable condition. I attest to the content of the Intraoperative Record and any orders documented therein. Any exceptions are noted below.
--- NOTE | 2024-01-03 18:16 | Anesthesiology Progress Note ---
Date of Service January 03, 2024 Anesthesia Post Procedure Vital Signs Vital Signs: Temp Pulse Pulse Resp BP BP Pulse Ox 01/03/24 18:10 37.6 C H 108 H 19 125/78 97 01/03/24 18:00 106 H 16 123/65 96 01/03/24 17:50 37 C 117 H 21 141/64 H 94 01/03/24 15:20 36.8 C 91 H 18 129/65 97 01/03/24 15:13 75 16 96 01/03/24 14:40 101 H 16 96 01/03/24 14:20 102 H 20 94 01/03/24 14:17 101 H 9 L 94 01/03/24 14:17 137/75 01/03/24 14:15 96 01/03/24 13:50 87 25 H 93 01/03/24 13:40 91 H 20 97 01/03/24 13:30 90 18 93 01/03/24 13:20 90 17 94 01/03/24 13:12 92 01/03/24 13:11 89 16 92 01/03/24 13:10 89 23 89 L 01/03/24 13:10 91 H 01/03/24 13:05 91 H 14 01/03/24 12:35 36.4 C L 102 H 18 143/83 H 96 O2 Del Method O2 Flow Rate 01/03/24 18:10 Nasal Cannula 2 01/03/24 18:00 Oxymask 5 01/03/24 17:50 Oxymask 5 01/03/24 15:20 Room Air 01/03/24 15:13 Room Air 01/03/24 14:40 01/03/24 14:20 01/03/24 14:17 01/03/24 14:17 01/03/24 14:15 01/03/24 13:50 01/03/24 13:40 01/03/24 13:30 01/03/24 13:20 01/03/24 13:12 Room Air 01/03/24 13:11 Room Air 01/03/24 13:10 01/03/24 13:10 01/03/24 13:05 01/03/24 12:35 Room Air Transfer of Care Handoff Completed per policy Notes Mental Status: alert / awake / arousable Patient Amnestic to Procedure: Yes Nausea / Vomiting: adequately controlled Pain: adequately controlled Airway Patency, RR, SpO2: stable & adequate BP & HR: stable & adequate Hydration State: stable & adequate Anesthetic Complications: no major complications apparent and Pt Satisfied with anesthetic care
[2024-01-03] MEDS ORDERED: oxyCODONE HCL IR 5 MG TAB (IMMEDIATE RELEASE) PO PRN ×2 (18:29)
[2024-01-03] MEDS ORDERED: MoRPHine SULFATE 4 MG/ML 1 ML CARP\\VIAL IV PRN (18:29)
[2024-01-03] MEDS ORDERED: PHARMACY GLYCEMIC MGMT CONSULT PRN (18:29)
[2024-01-03] MEDS ORDERED: MoRPHine SULFATE 2 MG/ML CARP IV PRN (18:29)
[2024-01-03] MEDS: LACTATED RINGER'S 1,000 ML IV SCH ×2 (18:47→18:48)
[2024-01-03] MEDS ORDERED: CARBOHYDRATES FOR HYPOGLYCEMIA PO PRN (19:00)
[2024-01-03] MEDS ORDERED: GLUCOSE 40% GEL 15 GM TUBE PO PRN (19:00)
[2024-01-03] MEDS ORDERED: GLUCAGON FOR INJ 1 MG VIAL IM PRN (19:00)
[2024-01-03] MEDS ORDERED: DEXTROSE 50% 50 ML SYRINGE IV PRN (19:00)
[2024-01-03] MEDS ORDERED: GLUCOSE 10 TAB/TUBE PO PRN (19:00)
[2024-01-03] MEDS: INSULIN ASPART PER UNIT CHARGE SC SCH (19:13)
[2024-01-03] MEDS: ACETAMINOPHEN 1,000 MG/100 ML VIAL IV SCH (20:11)
[2024-01-03] MEDS: ARTIFICIAL TEARS OP SCH (20:12)
[2024-01-03] MEDS: valACYclovir HCL 500 MG TABLET PO SCH (20:43)
[2024-01-03] MEDS: cefOXitin 2,000 MG in DEXTROSE 5 % MINI-B 50 ML IV SCH (22:31)
[2024-01-03 23:01] LABS: Hemoglobin 11.5 g/dl (12.0-16.0)
--- NOTE | 2024-01-03 23:14 | Communication Note ---
Date of Service: January 03, 2024 I was called by nursing patient had a relative hypotension with a blood pressure of 86/51. Because of this blood pressure reading stat hemoglobin and hematocrit was ordered. The above noted labs were retrieved and hemoglobin and hematocrit are 11.5 and 35.0. This level of hemoglobin represents approximately 3 g drop from preoperative values. I do suspect that some of this may be due to hemodilution from intravenous fluids have been administered. The patient was visited at bedside at approximate 11:00 PM. At the time my visit nursing staff repeated blood pressure and it was 90 systolic. The patient was not tachycardic with heart rate of approximately 85. Patient notes that she currently feels fine and is asymptomatic specifically stating she does not have any lightheadedness or dizziness. She notes she has been out of bed to the restroom on 1 occasion since her surgery and did not have any difficulties specifically again stating no lightheadedness or dizziness. Patient's abdomen was examined and her 3 laparoscopic incisions are clean, dry, and intact. Her abdomen is soft and nondistended and she has minimal to no pain with palpation. Will continue to monitor the patient clinically for the present time.
[2024-01-04 07:04] LABS: Hematocrit (blood only) 34.6 % (37.0-47.0); Hemoglobin 11.1 g/dl (12.0-16.0); Mean Corpuscular Hemoglobin 29.6 pg (25.0-34.0); Mean Corpuscular Hgb Conc 32.1 g/dL (32.0-36.0); Mean Corpuscular Volume 92.3 fL (80.0-100.0); Mean Platelet Volume 9.9 fL (9.4-12.4); Platelet Count 190 K/uL (130-400); RDW Standard Deviation 47.4 fL (36.4-46.3); Red Blood Count 3.75 M/uL (4.20-5.40); White Blood Count 20.47 K/ul (4.8-10.8)
[2024-01-04 07:21] LABS: Basophils # (auto) 0.05 K/uL (0.00-0.20); Basophils % (auto) 0.2 %; Eosinophils # (auto) 0.07 K/uL (0.00-0.50); Eosinophils % (auto) 0.3 %; Immature Granulocytes # (auto) 0.25 K/uL (0.01-0.20); Immature Granulocytes % (auto) 1.2 %; Lymphocytes # (auto) 0.77 K/uL (1.20-3.40); Lymphocytes % (auto) 3.8 %; Monocytes # (auto) 0.52 K/uL (0.11-0.59); Monocytes % (auto) 2.5 %; Neutrophils # (auto) 18.81 K/uL (1.40-6.50); RBC Morphology Unremarkable
[2024-01-04 07:35] LABS: BUN Creatinine Ratio 15.2 (10-20); Calcium 7.9 mg/dl (8.6-10.3); Creatinine Clr Calc Pharmacy 70.6 ml/min; Est GFR (Non-African American) 78.6 ml/min
[2024-01-04] MEDS: LEVOTHYROXINE SODIUM 50 MCG TABLET PO SCH (08:25)
[2024-01-04] MEDS: DULoxetine HCL 60 MG CAP PO SCH (08:25)
--- NOTE | 2024-01-04 08:58 | Surgery Progress Note ---
<Statement entered by Izaiah Goodrich DO - 01/04/24 19:19> I have seen and examined this patient this am, I agree with the plan. Date of Service January 04, 2024 Assessment & Plan (1) Acute appendicitis: Plan: POD#1 laparoscopic appendectomy WBC 20, Hbg 11 (11.5), K 4 Patient is afebrile this AM, HR 70-80's, SBP ranging from mid 80s-90s She feels well, pain controlled. denies lightheadedness/dizziness. ambulating without issues Tolerating clears, no nausea. + flatus. Hungry for more Will continue to advance diet as tolerates Will order bolus for BP's and recheck CBC this evening to trend WBC and ensure stability of hbg Continue on IV abx while in house Consider dispo this evening vs tomorrow pending ongoing progress and blood work tonight Encourage OOB as tolerates Admission and Anticipated Discharge Date Admission Date: January 03, 2024 Subjective Patient reports feeling well. Pain controlled. Denies nausea/vomiting. Tolerating clears, hungry for more. Passing flatus. Denies lightheadedness or dizziness. Physical Exam Physical Exam: awake/alert, no distress Respiratory: normal respiratory effort Gastrointestinal (Abdomen): Inspection/Auscultation: + abdominal surgical incision (c/d/i, some ecchymosis of umbilical and LLQ incision); abdomen not distended Percussion/Palpation: + abdomen tender (mild roma incisional discomfort ) and abdomen soft Results & Data Vital Signs (Past 12 Hours) Vital Signs Temp Pulse Resp BP Pulse Ox O2 Del Method O2 Flow Rate 01/04/24 07:45 97.3 F L 71 92/55 L 98 Room Air 01/04/24 02:47 97.3 F L 79 18 86/47 L 95 Room Air 01/03/24 22:31 97.9 F 83 16 86/51 L 95 Nasal Cannula 1 01/03/24 21:30 98.1 F 86 18 87/54 L 94 Nasal Cannula 1 PG Care Time/CCT Total # of Minutes Spent Total Time Spent with Patient: Total time spent is greater than 50% in coordination of care (as documented) at patient's floor/unit and/or counseling patient: Coding Level of Care Code 16653 Post Operative Follow-Up Diagnoses Acute appendicitis K35.890 Acute appendicitis type: other (1) Acute appendicitis Acute appendicitis type: other Qualified Code(s): K35.890 - Other acute appendicitis without perforation or gangrene
[2024-01-04] MEDS: SODIUM CHLORIDE 0.9% 500 ML IV ONE (09:14)
--- NOTE | 2024-01-04 09:46 | Pharmacy Report ---
Pharmacy Glycemic Short Note 2 - Date of Service January 04, 2024 - Glycemic Short BSG Results (Last 24 hours): 01/03/24 01/03/24 01/03/24 12:52 17:53 20:26 Glucose 135 H POC Glucose 106 H 216 H 01/04/24 01/04/24 06:27 07:45 Glucose 174 H POC Glucose 143 H OUTPATIENT ANTIDIABETIC REGIMEN: * Metformin 500 mg PO daily * HbA1c: 6.5% (09/27/23) ASSESSMENT: * 63 yo F admitted on 01/03/24 postoperatively following an appendectomy. Pharmacy has been consulted to assist with inpatient glycemic management. Patient is a Type 2 diabetic as an outpatient. Please refer to outpatient regimen and most recent HbA1c above. * BSGs last evening were 106 and 216 mg/dL. Tolerating clears per surgery and diet will be advanced as tolerated. Possible discharge this evening vs tomorrow. * Fasting BSG was 143 mg/dL this AM. Continue holding basal insulin. Metformin can likely be resumed tomorrow. No changes necessary to bolus regimen. PLAN FOR INPATIENT GLYCEMIC CONTROL: * Hold outpatient oral diabetes medications * Basal insulin * None * Bolus insulin * NovoLog per scale ACHS or Q6hrs while NPO * Goal Range: Low 110 mg/dL - High 140 mg/dL * Correction Factor: 35 mg/dL/unit * Nutritional / Prandial insulin per carb ratio of 1 unit per 12 grams CHO consumed
[2024-01-05 07:05] LABS: Basophils # (auto) 0.04 K/uL (0.00-0.20); Basophils % (auto) 0.3 %; Eosinophils # (auto) 0.18 K/uL (0.00-0.50); Eosinophils % (auto) 1.6 %; Hemoglobin 10.5 g/dl (12.0-16.0); Immature Granulocytes # (auto) 0.05 K/uL (0.01-0.20); Immature Granulocytes % (auto) 0.4 %; Lymphocytes # (auto) 1.29 K/uL (1.20-3.40); Lymphocytes % (auto) 11.2 %; Mean Corpuscular Hemoglobin 29.4 pg (25.0-34.0); Mean Corpuscular Hgb Conc 31.8 g/dL (32.0-36.0); Mean Corpuscular Volume 92.4 fL (80.0-100.0); Monocytes # (auto) 0.67 K/uL (0.11-0.59); Monocytes % (auto) 5.8 %; Neutrophils # (auto) 9.26 K/uL (1.40-6.50); Neutrophils % (auto) 80.7 %; Platelet Count 191 K/uL (130-400); RDW Coefficient of Variation 14.3 % (11.5-14.5); RDW Standard Deviation 48.4 fL (36.4-46.3); Red Blood Count 3.57 M/uL (4.20-5.40); White Blood Count 11.49 K/ul (4.8-10.8)
[2024-01-05 08:10] LABS: Potassium 4.1 mmol/L (3.5-5.1)
[2024-01-05 08:16] LABS: BUN Creatinine Ratio 13.3 (10-20); Creatinine Clr Calc Pharmacy 74.4 ml/min; Est GFR (African American) 96.9 ml/min; Est GFR (Non-African American) 83.6 ml/min
--- NOTE | 2024-01-05 08:41 | Surgery Progress Note ---
<Statement entered by Izaiah Goodrich DO - 01/05/24 19:58> This case was discussed with the surgical PA, I agree with this plan Date of Service January 05, 2024 Assessment & Plan (1) Acute appendicitis: Plan: POD#2 laparoscopic appendectomy WBC 11 (20) feels well, pain controlled. denies lightheadedness/dizziness. ambulating without issues Tolerating fulls liquid had sm BM + flatus Advanced to low fiber this AM if tolerating diet possible D/c later today Admission and Anticipated Discharge Date Admission Date: January 03, 2024 Subjective Denies nausea/vomiting Tolerating fulls Passing flatus Denies lightheadedness or dizziness ambulating Review of Systems Constitutional: no fever, no chills, no sweats and no body aches Respiratory: no dyspnea Cardiovascular: no chest pain and no dyspnea Gastrointestinal: + abdominal pain (soreness); no nausea a nd no vomiting Genitourinary: no dysuria Musculoskeletal: no muscle weakness Physical Exam Physical Exam: alert oriented Constitutional: well developed, cooperative and comfortable; no acute distress Respiratory: normal respiratory effort and able to speak in complete sentences; no respiratory distress Cardiovascular: Rate/Rhythm: regular rate Gastrointestinal (Abdomen): Inspection/Auscultation: + abdominal surgical incision (CDI dermabond ); abdomen not distended Percussion/Palpation: + abdomen tender and abdomen soft Musculoskeletal: no cyanosis or clubbing, extremities motor strength 5/5 Results & Data Vital Signs (Past 12 Hours) Vital Signs Temp Pulse Resp BP Pulse Ox O2 Del Method 01/05/24 07:44 97.9 F 60 16 122/70 97 Room Air Results Complete Blood Count Results: RBC 3.57 M/uL (4.20-5.40) L 01/05/24 WBC 11.49 K/ul (4.8-10.8) H 01/05/24 Hgb 10.5 g/dl (12.0-16.0) L 01/05/24 Hct 33.0 % (37.0-47.0) L 01/05/24 Plt Count 191 K/uL (130-400) 01/05/24 Results BMP Results: Sodium 137 mmol/L (136-145) 01/05/24 Potassium 4.1 mmol/L (3.5-5.1) 01/05/24 Chloride 106 mmol/L (98-107) 01/05/24 Carbon Dioxide 28 mmol/L (21-32) 01/05/24 Anion Gap 3 (3-11) 01/05/24 BUN 10 mg/dl (6-23) 01/05/24 Creatinine 0.75 mg/dl (0.6-1.2) 01/05/24 Glucose 93 mg/dl (70-99(Fasting)) 01/05/24 PG Care Time/CCT Total # of Minutes Spent Total Time Spent with Patient: Total time spent is greater than 50% in coordination of care (as documented) at patient's floor/unit and/or counseling patient: Coding Level of Care Code 48759 Post Operative Follow-Up Diagnoses Acute appendicitis K35.890 Acute appendicitis type: other (1) Acute appendicitis Acute appendicitis type: other Qualified Code(s): K35.890 - Other acute appendicitis without perforation or gangrene
== END 2024-01-05 14:23 | disposition home or self-care (01) ==
LOC: ED 12:28 → 3N 15:15 → OR 15:15